=== PATIENT | female | born 1985 | race Caucasian/White ===

== ENCOUNTER 2024-06-09 10:31 | Emergency (ER) | payer SELFPAY ==
[2024-06-09] MEDS ORDERED: ONDANSETRON 4 MG/2 ML VIAL ONE (11:18)
[2024-06-09] MEDS ORDERED: MORPHINE 4 MG/ML SYR ONE (11:18)
[2024-06-09 11:59] LABS: Absolute Basophils 0.1 K/uL (0-0.5); Absolute Lymphocytes (CBC) 2.7 K/uL (0.7-4.9); Absolute Monocytes 0.6 K/uL (0.1-1.3); Absolute Neutrophil 8.5 K/uL (1.8-8.0); Basophils % 0.9 % (0-1.3); Eosinophils % 0.4 % (0-4.4); Hematocrit 42.6 % (36.0-45.0); Hemoglobin 14.5 g/dL (12.0-15.0); Lymphocytes % 22.7 % (15.3-44.8); MCH 32.2 pg (27.0-35.0); MCHC 34.1 g/dL (32.0-36.0); MCV 94.4 fL (80-100); MPV 6.4 fL (7.6-11.3); Monocytes % 4.8 % (3.3-12.3); Neutrophils % 71.2 % (41.7-73.7); Platelets 447 thou/uL (152-406); RBC Red Blood Cell Count 4.52 M/uL (3.86-4.86); Red Cell Distribution Width 13.1 % (12.1-15.2)
[2024-06-09 13:00] LABS: Albumin 3.6 g/dL (3.4-5.0); Albumin/Globulin Ratio 0.8 (1.1-1.8); Anion Gap 13.1 mEq/L (5.0-15.0); Bilirubin Total 0.3 mg/dL (0.2-1.0); Globulin 4.4 g/dL (2.3-3.5); Potassium 4.1 mEq/L (3.5-5.1)
--- NOTE | 2024-06-09 14:24 | RAD REPORT ---
EXAM DESCRIPTION: CT - Abdomen Pelvis W Contrast - 06/09/2024 1:30 pm CLINICAL HISTORY: back pain, left hip pain COMPARISON: No comparisons TECHNIQUE: Thin cut axial CT imaging of the abdomen and pelvis was performed following intravenous a dministration of iodinated contrast. Multiplanar reformats were generated and reviewed. All CT scans are performed using dose optimization technique as appropriate and may include automated exposure control or mA/KV adjustment according to patient size. FINDINGS: No suspicious findings in the lung bases. The liver, spleen, adrenal glands, and pancreas show no suspicious findings. Gallbladder was surgical ly removed. Symmetric renal function is seen with no hydronephrosis or suspicious renal mass. 2-3 mm left lower r enal pole nonobstructing calculus. No dilated bowel loops or bowel wall thickening. Moderate stool burden along the ascending colon. Raz endix is unremarkable. No free air, free fluid or inflammatory stranding. Few sigmoid diverticula. No hernia, mass or bulky lymphadenopathy. The urinary bladder is without significant finding. No suspicious bony findings. IMPRESSION: No acute traumatic findings. Nonobstructing left lower renal pole 2-3 mm calculus. Moderate stool burden along the ascending colon.
[2024-06-09 14:31] LABS: Specific Gravity 1.021 (1.005-1.030); Urine Bacteria 20-50 /HPF (<20); Urine Bilirubin NEGATIVE (Negative); Urine Blood Negative (Negative); Urine Clarity Extremely Turbid (Clear); Urine Color Light-Yellow (Yellow); Urine Culture Reflex Order NOT NEEDED; Urine Glucose NEGATIVE (Negative); Urine Ketones NEGATIVE (Negative); Urine Microscopic Reflex YN ORDER UMIC; Urine Mucus 1+ /HPF (None Seen); Urine Nitrite 2+ (Negative); Urine Protein TRACE (Negative); Urine Urobilinogen Normal (Normal)
[2024-06-09 14:35] LABS: Specific Gravity 1.021 (1.005-1.030)
--- NOTE | 2024-06-09 14:39 | EDPHYS ---
Physician Documentation [facility] Name: Marixa Gary Age: 38 yrs Sex: Female : 1985 Arrival Date: 06/09/2024 Time: 10:31 Bed 16 Private MD: ED Physician Tito Unger HPI: 06/09 11:00 This 38 yrs old Female presents to ER via Wheelchair with complaints of Fall Injury. cp 11:00 Details of fall: The patient fell from a height, several stairs outside home after cp slipping. landed on left side and c/o pain to hip and back. 11:00 Onset: The symptoms/episode began/occurred yesterday. cp 11:00 Severity of symptoms: in the emergency department the symptoms are actually worse, cp markedly. 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 - Infectious Disease History:: Denies. - Social history:: Smoking status: Reported history of juuling and/or vaping. Patient denies any tobacco usage or history of. ROS: 11:10 Constitutional: HX per HPI cp 11:10 Constitutional: Negative for body aches, chills, fever, poor PO intake, cp 11:10 Cardiovascular: Negative for chest pain, palpitations, 11:10 Respiratory: Negative for cough, shortness of breath, wheezing, 11:10 Abdomen/GI: Negative for abdominal pain, nausea, vomiting, and diarrhea, 11:10 Back: Positive for pain at rest, pain with movement, 11:10 MS/extremity: Positive for hip pain, 11:10 Neuro: Negative for altered mental status, headache, loss of consciousness, numbness, weakness, 11:10 All other systems are negative, Exam: 11:15 Constitutional: The patient appears in no acute distress, alert, awake, non-toxic, well cp developed, well nourished, uncomfortable, 11:15 Head/Face: Normocephalic, atraumatic. cp 11:15 Eyes: Periorbital structures: appear normal, Conjunctiva: normal, no exudate, no injection, Lids and lashes: appear normal, bilaterally, 11:15 ENT: External ear(s): are unremarkable, Nose: is normal, Mouth: Lips: moist, Oral mucosa: moist, Posterior pharynx: Airway: no evidence of obstruction, patent, 11:15 Chest/axilla: Inspection: normal, 11:15 Cardiovascular: Rate: normal, 11:15 Respiratory: the patient does not display signs of respiratory distress, Respirations: normal, no use of accessory muscles, no retractions, labored breathing, is not present, Breath sounds: are clear throughout, no decreased breath sounds, 11:15 Abdomen/GI: Inspection: abdomen appears normal, Palpation: abdomen is soft and non-tender, in all quadrants, 11:15 Back: pain, that is severe, of the lumbar area and left low back, ROM is painful, with all movement, 11:15 Musculoskeletal/extremity: Extremities: noted in the left hip: pain, ROM: full active range of motion, in the left hip, 11:15 Neuro: Orientation: to person, place \T\ time. Mentation: is normal, Vital Signs: 10:41 BP 161 / 101; Pulse 98; Resp 17; Temp 97.6; Pulse Ox 100% ; Weight 68.04 kg; Height 5 ll1 ft. 2 in. ; Pain 8/10; 11:50 BP 176 / 115; Pulse 99; Resp 18; Pulse Ox 100% on R/A; db 12:00 BP 169 / 108; Pulse 95; Resp 16; Pulse Ox 99% on R/A; me1 13:00 BP 169 / 108; Pulse 95; Resp 16; Pulse Ox 99% ; me1 14:00 BP 163 / 103; Pulse 95; Resp 16; Pulse Ox 100% on R/A; me1 15:00 BP 141 / 99; Pulse 89; Resp 16; Temp 98.4; Pulse Ox 97% on R/A; me1 10:41 Body Mass Index 27.44 (68.04 kg, 157.48 cm) ll1 10:41 Pain Scale: Adult ll1 MDM: 10:41 Patient medically screened. cp 12:15 Differential diagnosis: contusion, fracture, multiple trauma. cp 14:38 Data reviewed: vital signs, nurses notes, lab test result(s), radiologic studies, CT cp scan, and as a result, I will discharge patient. 14:38 I considered the following discharge prescriptions or medication management in the emergency department Medications were administered in the Emergency Department. See MAR. Counseling: I had a detailed discussion with the patient and/or guardian regarding the historical points, exam findings, and any diagnostic results supporting the discharge/admit diagnosis, lab results, radiology results, to return to the emergency department if symptoms worsen or persist or if there are any questions or concerns that arise at home. Response to treatment: the patient's symptoms have markedly improved after treatment, and as a result, I will discharge patient. 06/09 10:54 Order name: CBC with Diff; Complete Time: 14:12 06/09 14:17 Interpretation: Normal except: WBC 11.90; PLT 447; MPV 6.4; NEUT A 8.5. 06/09 10:54 Order name: CMP; Complete Time: 14:12 06/09 10:54 Order name: Lipase; Complete Time: 14:12 06/09 10:54 Order name: Test, Urine 06/09 10:54 Order name: Urinalysis w/ reflexes; Complete Time: 14:34 06/09 10:54 Order name: CT Abd/Pelvis - IV Contrast Only; Complete Time: 14:26 06/09 14:26 Interpretation: Report reviewed. 06/09 10:54 Order name: IV Saline Lock; Complete Time: 11:59 06/09 10:54 Order name: Labs collected and sent; Complete Time: 12:00 06/09 12:06 Order name: Labs - recollect needed: recollect green top/ hemolyzed per lab; Complete eb Time: 13:58 Administered Medications: 11:55 Drug: Ondansetron IVP 4 mg IVP once; over 2 minutes Route: IVP; Site: right wrist; db 14:08 Follow up: Response: No adverse reaction; Nausea is decreased me1 11:55 Drug: morphine IVP or IV 4 mg IVP once over 4 mins Route: IVP; Infused Over: 4 mins; db Site: right wrist; 14:08 Follow up: Response: No adverse reaction; Pain is decreased me1 14:48 Drug: Hydrocodone-Acetaminophen PO (7.5 mg-325 mg) 1 tabs PO once; RASS on ADMIN: me1 Combtv4, Very Agttd3, Agttd2, Rstlss1, AlertClm0, Drwsy-1, Lt Sdtn-2, Mod Sdtn-3, Dp Sdtn-4, UnArsble-5 Route: PO; 15:15 Follow up: Response: No adverse reaction; Pain is decreased me1 14:48 Drug: Methocarbamol PO 750 mg PO once Route: PO; me1 15:15 Follow up: Response: No adverse reaction me1 15:15 Follow up: Response: Pain is decreased me1 14:48 Drug: Rocephin IV 1 grams IV at calculated rate once; Given slow IV push per pharmacy me1 instructions Route: IV; Rate: calculated rate; Site: right wrist; 14:50 Follow up: Response: No adverse reaction; IV Status: Completed infusion me1 Disposition Summary: 06/09/24 14:39 Discharge Ordered Notes: Location: Home cp Problem: new cp Symptoms: have improved cp Condition: Stable cp Diagnosis - Fall (on) (from) other stairs and steps cp - Low back pain cp - Pain in hip cp - UTI/ Urinary tract infection, site not specified cp Followup: cp - With: Private Physician - When: 2 - 3 days - Reason: Worsening of condition Discharge Instructions: - Discharge Summary Sheet cp - Acute Back Pain, Adult cp - Urinary Tract Infection, Adult cp - Hip Pain cp Forms: - Medication Reconciliation Form cp - Antibiotic Education cp - Prescription Opioid Use cp - Patient Portal Instructions cp - Leadership Thank You Letter cp Prescriptions: - Diclofenac Sodium 75 mg Oral tablet, delayed release (enteric coated) - take 1 tablet ORAL route 2 times per day; 20 tablet; Refills: 0, Product cp Selection Permitted - Macrobid 100 mg Oral Capsule - take 1 capsule ORAL route every 12 hours for 7 days; 14 capsule; Refills: 0, cp Product Selection Permitted - methocarbamol 750 mg Oral tablet - take 1 tablet ORAL route 3 times per day; 30 tablet; Refills: 0, Product cp Selection Permitted Addendum: 06/16/2024 15:39 Co-signature as Attending Physician, Tito Unger MD I agree with the assessment and c verdin plan of care. Signatures: Dispatcher [employer] Tito Mccabe MD MD cha Page, Corey, PA PA cp Botello, Elizabeth eb Walter, Lynsay, RN RN ll1 Pamela Mcclelland, RN RN db Geneva Wells, RN RN me1
--- NOTE | 2024-06-09 14:39 | ER ---
Nurse's Notes [facility] Name: Marixa Gary Age: 38 yrs Sex: Female : 1985 Arrival Date: 06/09/2024 Time: 10:31 Bed 16 Private MD: Diagnosis: Fall (on) (from) other stairs and steps;Low back pain;Pain in hip;UTI/ Urinary tract infection, site not specified Presentation: 06/09 10:41 Chief complaint: Patient states: Slipped on wet steps yesterday. L sided hip/back pain ll1 since. R elbow with abrasions. No LOC or head injury. Coronavirus screen: Client denies travel out of the [place] in the last 14 days. At this time, the client does not indicate any symptoms associated with coronavirus-19. Ebola Screen: Patient denies travel to an Ebola-affected area in the 21 days before illness onset. Initial Sepsis Screen: Does the patient meet any 2 criteria? No. Patient's initial sepsis screen is negative. Does the patient have a suspected source of infection? No. Patient's initial sepsis screen is negative. Risk Assessment: Do you want to hurt yourself or someone else? Patient reports no desire to harm self or others. Onset of symptoms was June 08, 2024. 10:41 Method Of Arrival: Wheelchair ll1 10:41 Acuity: ASHOK 3 ll1 Triage Assessment: 10:43 General: Appears uncomfortable, Behavior is calm, cooperative, appropriate for age. ll1 Pain: Complains of pain in L hip/back Pain currently is 8 out of 10 on a pain scale. Quality of pain is described as aching. Derm: Reports abrasions R elbow. Musculoskeletal: Reports pain in L hip/back. Injury Description: Bruise. 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 - Infectious Disease History:: Denies. - Social history:: Smoking status: Reported history of juuling and/or vaping. Patient denies any tobacco usage or history of. Screenin:02 [facility] ED Fall Risk Assessment (Adult) History of falling in the last 3 months, db including since admission Yes- single mechanical fall (1 pt) Confusion or Disorientation No (0 pts) Intoxicated or Sedated No (0 pts) Impaired Gait No (0 pts) Mobility Assist Device Used No (0 pt) Altered Elimination No (0 pt) Score/Fall Risk Level 0 - 2 = Low Risk Oriented to surroundings, Maintained a safe environment. 12:02 Abuse screen: Denies threats or abuse. Denies injuries from another. Nutritional db screening: No deficits noted. Tuberculosis screening: No symptoms or risk factors identified. Primary Survey: 12:10 NO uncontrolled hemorrhage observed. A: The client is awake and alert. The airway is me1 patent. Assessment: 12:01 Reassessment: Patient appears in no apparent distress at this time. Patient and/or db family updated on plan of care and expected duration. Pain level reassessed. Patient is alert, oriented x 3, equal unlabored respirations, skin warm/dry/pink. General: Appears in no apparent distress. comfortable, Behavior is calm, cooperative. Pain:. Neuro: Level of Consciousness is awake, alert, obeys commands, Oriented to person, place, time, situation. Respiratory: Airway is patent Respiratory effort is even, unlabored, Respiratory pattern is regular, symmetrical. 12:01 Pain: Complains of pain in right arm. db 12:10 General: Appears in no apparent distress. comfortable, well groomed, well developed, me1 well nourished, Behavior is calm, cooperative, appropriate for age. Pain: Complains of pain in left low back and right arm Pain does not radiate. Pain currently is 7 out of 10 on a pain scale. Quality of pain is described as sharp, shooting, Pain began suddenly, Is continuous. Neuro: Level of Consciousness is awake, alert, obeys commands, Oriented to person, place, time, situation, Appropriate for age. Cardiovascular: Patient's skin is warm and dry. Respiratory: Airway is patent Respiratory effort is even, unlabored, Respiratory pattern is regular, symmetrical. GI: No signs and/or symptoms were reported involving the gastrointestinal system. : No signs and/or symptoms were reported regarding the genitourinary system. EENT: No signs and/or symptoms were reported regarding the EENT system. Derm: Wound noted right arm Wound is abrasion. Musculoskeletal: Reports pain in left low back and right arm. Injury Description: slip and fell yesterday. Vital Signs: 10:41 BP 161 / 101; Pulse 98; Resp 17; Temp 97.6; Pulse Ox 100% ; Weight 68.04 kg; Height 5 ll1 ft. 2 in. ; Pain 8/10; 11:50 BP 176 / 115; Pulse 99; Resp 18; Pulse Ox 100% on R/A; db 12:00 BP 169 / 108; Pulse 95; Resp 16; Pulse Ox 99% on R/A; me1 13:00 BP 169 / 108; Pulse 95; Resp 16; Pulse Ox 99% ; me1 14:00 BP 163 / 103; Pulse 95; Resp 16; Pulse Ox 100% on R/A; me1 15:00 BP 141 / 99; Pulse 89; Resp 16; Temp 98.4; Pulse Ox 97% on R/A; me1 10:41 Body Mass Index 27.44 (68.04 kg, 157.48 cm) ll1 10:41 Pain Scale: Adult ll1 ED Course: 10:34 Patient arrived in ED. mr 10:36 Tito Maldonado PA is PHCP. cp 10:36 Tito Unger MD is Attending Physician. cp 10:43 Triage completed. ll1 10:44 Arm band placed on Patient placed in an exam room, on a stretcher. ll1 10:50 Daniele Watson, RN is Primary Nurse. ll1 11:52 Inserted saline lock: 22 gauge in right wrist, using aseptic technique. Blood db collected. Flushed with 10 mL NS. 11:52 Initial lab(s) drawn, by me, sent to lab. db 11:54 Radiology exam delayed due to lab results not completed at this time. sj 12:01 Patient has correct armband on for positive identification. Bed in low position. Call db light in reach. Side rails up X 1. Client placed on continuous cardiac and pulse oximetry monitoring. NIBP monitoring applied. traffic monitor specialist on. Pulse ox on. NIBP on. Warm blanket given. 12:10 Provided Education on: POC. Verbalized understanding. . me1 12:10 No provider procedures requiring assistance completed. me1 13:32 CT Abd/Pelvis - IV Contrast Only In Process Unspecified. EDMS 14:15 Test, Urine Sent. me1 14:15 Urinalysis w/ reflexes Sent. me1 14:15 Urine collected: clean catch specimen, cloudy. me1 15:16 IV discontinued, intact, bleeding controlled, No redness/swelling at site. Pressure me1 dressing applied. Administered Medications: 11:55 Drug: Ondansetron IVP 4 mg IVP once; over 2 minutes Route: IVP; Site: right wrist; db 14:08 Follow up: Response: No adverse reaction; Nausea is decreased me1 11:55 Drug: morphine IVP or IV 4 mg IVP once over 4 mins Route: IVP; Infused Over: 4 mins; db Site: right wrist; 14:08 Follow up: Response: No adverse reaction; Pain is decreased me1 14:48 Drug: Hydrocodone-Acetaminophen PO (7.5 mg-325 mg) 1 tabs PO once; RASS on ADMIN: me1 Combtv4, Very Agttd3, Agttd2, Rstlss1, AlertClm0, Drwsy-1, Lt Sdtn-2, Mod Sdtn-3, Dp Sdtn-4, UnArsble-5 Route: PO; 15:15 Follow up: Response: No adverse reaction; Pain is decreased me1 14:48 Drug: Methocarbamol PO 750 mg PO once Route: PO; me1 15:15 Follow up: Response: No adverse reaction me1 15:15 Follow up: Response: Pain is decreased me1 14:48 Drug: Rocephin IV 1 grams IV at calculated rate once; Given slow IV push per pharmacy me1 instructions Route: IV; Rate: calculated rate; Site: right wrist; 14:50 Follow up: Response: No adverse reaction; IV Status: Completed infusion me1 Medication: 12:10 VIS not applicable for this client. me1 Outcome: 14:39 Discharge ordered by . cp 15:16 Discharged to home via wheelchair, with significant other, me1 15:16 Condition: stable 15:16 Discharge instructions given to patient, significant other, Instructed on discharge instructions, follow up and referral plans. medication usage, Demonstrated understanding of instructions, follow-up care, medications, Prescriptions given X 3, 15:16 Patient left the ED. me1 Signatures: Dispatcher [employer] EDMS Rosa Trevino, Reg Reg mr David, Tito Barker, Daniele Carrion cp, RN RN ll1 Pamela Mcclelland, RN RN db Geneva Wells, RN RN me1
[2024-06-09] MEDS ORDERED: methocarbamoL 750 MG TAB ONE (14:42)
[2024-06-09] MEDS ORDERED: CEFTRIAXONE 1000 MG/VIAL ONE (14:42)
[2024-06-09] MEDS ORDERED: HYDROCODONE/APAP 7.5/325 MG TAB ONE (14:42)
[2024-06-09 16:01] VITALS: BP 141/99; TEMP 98.4; O2SAT 97
== END 2024-06-09 15:16 | disposition home or self-care (01) ==
LOC: ER 10:31
DX: M54.50 Low back pain, unspecified (principal); M25.552 Pain in left hip; N39.0 Urinary tract infection, site not specified; W10.9XXA Fall (on) (from) unspecified stairs and steps, initial encounter
CPT/HCPCS: 36415; 74177; 80053; 81001; 81025; 83690; 85025; 96374; 96375; 99285; J0696; J2405; Q9967